=== PATIENT | female | born 1990 | race Caucasian/White ===

== ENCOUNTER 2018-04-14 18:33 | Emergency (ER) | payer SELFPAY ==
[~2018-04-14] VITALS: Ht 170.2 cm; Wt 67.0 kg
[2018-04-14 18:36] VITALS: BP 132/88; PULSE 98; RESP 15; TEMP 97.9; O2SAT 100
[2018-04-14] MEDS ORDERED: PRED20 PO (19:56)
[2018-04-14] MEDS ORDERED: TRAM50 PO (19:56)
--- NOTE | 2018-04-14 19:57 | PD ---
HPI Chief Complaint: Burn Time Seen by Provider: 19:17 Travel History International Travel<30 days: No Contact w/Intl Traveler<30days: No Traveled to known affect area: No History of Present Illness HPI This is a 27-year-old female here with a sunburn 1 day. She reports she sustained a burn to the anterior aspect of her legs and chest. She has been using Silvadene cream with minimal relief. She is reporting pain that is keeping her from sleeping. She reports intense burning at the area of the sunburn. Symptom severity is moderate. No aggravating or alleviating factors. PFSH Past Medical History Medical History: Denies Significant Hx ?: Not LMP: 04/02/18 Social History Alcohol Use: Yes Tobacco Use: No Substance Use: No Allergies-Medications (Allergen,Severity, Reaction): Coded Allergies: amoxicillin (Verified Allergy, Intermediate, Hives, 04/14/18) clavulanic acid (Verified Allergy, Intermediate, Hives, 04/14/18) Reported Meds & Prescriptions Reported Meds & Active Scripts Active No Active Prescriptions or Reported Medications Review of Systems Except as stated in HPI: all other systems reviewed are Neg Physical Exam Narrative GENERAL: Alert and well-appearing 27-year-old female. SKIN: Notable sunburn which is blanchable to her chest, upper extremities, lower extremities. No open areas or blisters. HEAD: Normocephalic. EYES: No injection or drainage. NECK: Supple CARDIOVASCULAR: Regular rate and rhythm RESPIRATORY: Breath sounds equal bilaterally. No accessory muscle use. GASTROINTESTINAL: Abdomen soft, non-tender, nondistended. MUSCULOSKELETAL: No cyanosis, or edema. Data Data Last Documented VS Vital Signs Date Time Temp Pulse Resp B/P (MAP) Pulse Ox O2 Delivery O2 Flow Rate FiO2 04/14/18 18:36 97.9 98 15 132/88 (103) 100 MDM Medical Decision Making Medical Screen Exam Complete: Yes Emergency Medical Condition: Yes Differential Diagnosis Sunburn, drug-induced photosensitivity, other Narrative Course 27-year-old female here with a sunburn. She will be given a short dose of steroids and Ultram. She was instructed to stay well hydrated. Stay out of the sun. Diagnosis Primary Impression: Sunburn Referrals: Primary Care Physician Departure Forms: Tests/Procedures, Work Release Enter return to work date: Apr 17, 2018 Additional Instructions: Medication as directed. Drink plenty of fluids. Stay out of the sun. Scripts Prednisone (Prednisone) 20 Mg Tab 40 MG PO DAILY, #6 TAB 0 Refills Take 40 mg (2 tablets) daily for 5 days Prov: Keila Barnes 04/14/18 Tramadol (Ultram) 50 Mg Tab 50 MG PO Q6H Y for PAIN, #8 TAB 0 Refills Prov: Keila Barnes 04/14/18 Disposition: 01 DISCHARGE HOME Condition: Stable Keila Barnes Apr 14, 2018 19:57
== END 2018-04-14 20:09 | disposition home or self-care (01) ==
LOC: PHEFT 18:33
DX: L55.9 Sunburn, unspecified (principal); Z88.0 Allergy status to penicillin
CPT/HCPCS: 99283